=== PATIENT | male | born 1980 | race Hispanic/Latino ===

== ENCOUNTER 2018-10-31 06:36 | Emergency (ER) | payer SELFPAY ==
--- NOTE | 2018-10-31 07:09 | ED PDOC ---
Arrival/HPI - General Chief Complaint: Lower Extremity Problem/Injury Time Seen by Provider: 10/31/18 07:01 Historian: Patient - History of Present Illness Time/Duration: Other (several days ago) Symptom Onset: Sudden Symptom Course: Worsening Quality: Aching Severity Level: Mild Associated Symptoms (Text): 10/31/18 07:08 Patient was at work last week when he dropped a heavy object on his left foot. The foot has continued to swell and cause him pain especially with weightbearing. Past Medical History - Cardiac Hx Cardiac Disorders: No - Pulmonary Hx Respiratory Disorders: No - Neurological Hx Neurological Disorder: Yes Hx Seizures: Yes - HEENT Hx HEENT Disorder: No - Renal Hx Renal Disorder: No - Endocrine/Metabolic Hx Endocrine Disorders: No - Hematological/Oncological Hx Blood Disorders: No - Integumentary Hx Dermatological Disorder: No - Musculoskeletal/Rheumatological Hx Musculoskeletal Disorders: No - Gastrointestinal Hx Gastrointestinal Disorders: No - Genitourinary/Gynecological Hx Genitourinary Disorders: No - Psychiatric Hx Psychophysiologic Disorder: No Hx Substance Use: No Family/Social History - Physician Review Nursing Documentation Reviewed: Yes Family/Social History: Unknown Family HX Smoking Status: Current Some Days Smoker Hx Alcohol Use: Yes Frequency of alcohol use: Socially Hx Substance Use: No Allergies/Home Meds Allergies/Adverse Reactions: Allergies naproxen Adverse Reaction (Verified 10/31/18 06:50) REDNESS Home Medications: Home Meds Medication Instructions Recorded Confirmed No Known Home Med 10/31/18 10/31/18 Review of Systems - Physician Review All systems were reviewed & negative as marked: Yes Physical Exam Vital Signs Temp Pulse Resp BP Pulse Ox 10/31/18 06:51 98.3 F 88 18 155/96 H 99 Temperature: Afebrile Blood Pressure: Hypertensive Pulse: Regular Respiratory Rate: Normal Appearance: Positive for: Well-Appearing, Non-Toxic, Comfortable Pain Distress: None Mental Status: Positive for: Alert and Oriented X 3 - Systems Exam Lower Extremity: Present: Normal Inspection, NORMAL PULSES, Normal ROM, Tenderness, Swelling, Neurovascularly Intact, Other (Mild dorsal left foot tenderness and swelling. No skin changes.). No: Edema, CALF TENDERNESS, Cyanosis, Laurence's Sign, Erythema, Deformity Medical Decision Making - RAD Interpretation Radiology Orders: 10/31/18 07:07 FOOT LEFT 3 VIEWS ROUTINE [RAD] Stat Left foot shows no fracture or dislocation. Appeals Assistant: ED Physician Disposition/Present on Arrival - Present on Arrival Any Indicators Present on Arrival: No History of DVT/PE: No History of Uncontrolled Diabetes: No Urinary Catheter: No History of Decub. Ulcer: No History Surgical Site Infection Following: None - Disposition Have Diagnosis and Disposition been Completed?: Yes Diagnosis: Foot contusion Disposition: HOME/ ROUTINE Disposition Time: 07:30 Patient Plan: Discharge Condition: GOOD Discharge Instructions (ExitCare): Contusion (DC) Additional Instructions: Rest ice and elevation. Tylenol as directed on bottle. Follow-up with PMD. Follow-up in ER as needed. Forms: [facility] ([facility]), WORK NOTE
[2018-10-31 07:45] VITALS: BP 113/89; PULSE 79; RESP 19; TEMP 97.2; O2SAT 98
--- NOTE | 2018-10-31 07:51 | RAD ---
Date of service: 10/31/2018 PROCEDURE: Left Foot Radiographs. HISTORY: trauma COMPARISON: None. TECHNIQUE: 3 views obtained. FINDINGS: BONES: No acute fracture or destructive bony lesion identified. Small bone island is identified at the distal phalanx left 2nd digit. JOINTS: No subluxation or dislocation. SOFT TISSUES: Normal. OTHER FINDINGS: None. IMPRESSION: No acute fracture or dislocation identified.
== END 2018-10-31 07:45 | disposition home or self-care (01) ==
LOC: ED 06:36
DX: S90.32XA Contusion of left foot, initial encounter (principal); W22.8XXA Striking against or struck by other objects, initial encounter; Y92.69 Other specified industrial and construction area as the place of occurrence of the external cause; Y99.0 Civilian activity done for income or pay